=== PATIENT | male | born 1960 | race Caucasian/White ===

== ENCOUNTER 2018-04-11 16:15 | Inpatient (IN) | payer MEDICAID ==
[~2018-04-11] VITALS: Ht 175.3 cm; Wt 153.4 kg
[2018-04-11 16:20] VITALS: BP 165/101
--- NOTE | 2018-04-11 16:35 | NUR ---
PT TAKEN BY WHEELCHAIR TO ER BED 03
--- NOTE | 2018-04-11 16:40 | NUR ---
57/M BIB FAMILY C/O COUGH X 2 DAYS. ALSO C/O LT SIDED CHEST PAIN RADIATING TO HIS LT ARM, SOB, DIZZY ABOUT 10 MIN PRIOR TO ARRIVAL; DENIES N/V/D. HX; QUADRUPLE BYPASS ON 2009, HTN, DM, COPD, STROKE RIGHT SIDE 8 MONTHS AGO.DENIES N/V/D; SKIN IS PINK/WARM/DRY; AAOX4,LUNGS CLEAR BL; HR EVEN AND REGULAR. PATIENT STATES PAIN OF 8/10 AT THIS TIME. PATIENT POSITIONED FOR COMFORT; HOB ELEVATED; BEDRAILS UP X2; BED DOWN. ER MD MADE AWARE OF PT STATUS.
[2018-04-11 16:59] LABS: BASOPHILS # (AUTO) 0.1 K/uL (0.00-0.22); EOSINOPHILS # (AUTO) 0.1 K/uL (0-0.4); EOSINOPHILS % (AUTO) 1.5 % (0.0-4.0); HEMOGLOBIN 14.4 g/dL (12.0-18.0); LYMPHOCYTES # (AUTO) 2.4 K/uL (2.0-11.5); LYMPHOCYTES % (AUTO) 30.1 % (20.5-51.1); MEAN CORPUSCULAR HEMOGLOBIN 33 pg (27-31); MEAN CORPUSCULAR HGB CONC 34 g/dL (33-37); MONOCYTES # (AUTO) 0.6 K/uL (0.8-1.0); MONOCYTES % (AUTO) 8.1 % (1.7-9.3); NEUTROPHILS # (AUTO) 4.7 K/uL (1.8-7.7); NEUTROPHILS % (AUTO) 59.3 % (42.2-75.2); PLATELET COUNT (AUTO) 234 K/uL (140-450); RED BLOOD CELL COUNT(AUTO) 4.38 MIL/uL (4.20-6.10); RED CELL DISTRIBUTION WIDTH 13.4 % (11.6-13.7); WHITE BLOOD COUNT (AUTO) 7.9 K/uL (4.8-10.8)
[2018-04-11 17:08] LABS: ANION GAP 12.4 (8-16); CARBON DIOXIDE 29.1 mmol/L (21-32); CREATININE 0.9 mg/dL (0.7-1.3); POTASSIUM 3.5 mmol/L (3.5-5.1)
[2018-04-11 17:12] LABS: PROTHROMBIN TIME 9.9 secs (10.8-13.4)
[2018-04-11 17:14] LABS: ALBUMIN 3.3 g/dL (3.4-5.0); TOTAL BILIRUBIN 0.3 mg/dL (0.0-1.0)
[2018-04-11] MEDS ORDERED: MORPHINE SULFATE 4 MG/ML SYR IVP ONE ×2 (17:25→18:30)
--- NOTE | 2018-04-11 19:05 | NUR ---
Pt report given to MARIBEL PICKETT. Transfer of care at this time.
--- NOTE | 2018-04-11 19:15 | NUR ---
pt sitting up in bed, vitals stable.
--- NOTE | 2018-04-11 19:16 | NUR ---
Dr. Taveras evaluating patient at bedside.
[2018-04-11] MEDS ORDERED: HYDROcodone/APAP 5/325 MG 1 TAB TAB PO PRN (19:35)
[2018-04-11] MEDS ORDERED: ZOLPIDEM 5 MG TAB PO PRN (19:35)
[2018-04-11] MEDS ORDERED: LORazepam 2 MG/ML VIAL IM/IVP PRN (19:35)
[2018-04-11] MEDS ORDERED: DOCUSATE SODIUM 100 MG GELCAP PO PRN (19:35)
[2018-04-11] MEDS ORDERED: ACETAMINOPHEN 325 MG TAB PO PRN (19:35)
[2018-04-11] MEDS ORDERED: ONDANSETRON 4 MG/2 ML VIAL IM/IVP PRN (19:35)
[2018-04-11] MEDS ORDERED: NITROGLYCERIN 0.4 MG TAB SL PRN (19:40)
[2018-04-11] MEDS ORDERED: DIAZEPAM 5 MG TAB PO ONE (19:40)
[2018-04-11] MEDS ORDERED: ASPIRIN 325 MG TAB PO ONE (19:45)
[2018-04-11] MEDS ORDERED: ALBUTEROL SULFATE/IPRATROPIU 3 ML SOL IH PRN (20:10)
[2018-04-11] MEDS ORDERED: DEXTROSE 50% 50 ML SYR IVP PRN (20:10)
[2018-04-11] MEDS ORDERED: INSULIN LISPRO SLIDING SCALE 100 UNITS/ML VIAL SUBQ PRN (20:10)
[2018-04-11 20:13] LABS: CHOL/HDL RATIO 8.1 (1-4.5); MAGNESIUM 1.9 mg/dL (1.8-2.4); PHOSPHORUS 3.1 mg/dL (2.5-4.9); THYROID STIMULATING HORMONE 0.44 uIU/mL (0.34-3.74)
[2018-04-11 20:20] VITALS: BP 142/66
--- NOTE | 2018-04-11 20:20 | NUR ---
Pt report given to joey seals. Transfer of care at this time. pt vitals stable.
--- NOTE | 2018-04-11 20:20 | NUR ---
Patient will be admitted to care of Dr. Campos. Admited to Telemetry. Will go to room 106 B. Belongings list completed. Report to Alice PICKETT.
--- NOTE | 2018-04-11 20:25 | NUR ---
ADMITTED PT FROM ER. AAOX4. NO C/O OF PAIN AT THIS TIME. NO RESP DISTRESS NOTED. ON ROOM AIR. IV TO LEFT FA #20G, PATENT AND INTACT. PT IS AMBULATORY. ORIENTED PT TO ROOM. DISCUSSED PLAN OF CARE, PT VERBALIZED UNDERSTANDING. CALL LIGHT WITHIN REACH.
[2018-04-11] MEDS ORDERED: NACL 0.9% 1,000 ML IV SCH (20:30)
[2018-04-11] MEDS ORDERED: MORPHINE SULFATE 4 MG/ML SYR IVP PRN (20:50)
[2018-04-11] MEDS ORDERED: ASPI81CT89 PO (20:53)
[2018-04-11] MEDS ORDERED: METO25TA PO (20:53)
[2018-04-11] MEDS ORDERED: LIP80 PO (20:53)
[2018-04-11] MEDS ORDERED: LISI-420 PO (20:53)
[2018-04-11] MEDS ORDERED: FURO-570 PO (20:53)
[2018-04-11] MEDS ORDERED: METOPROLOL 25 MG TAB PO SCH ×2 (21:00)
[2018-04-11] MEDS ORDERED: FUROSEMIDE 40 MG TAB PO SCH (21:00)
[2018-04-11] MEDS ORDERED: BLOOD GLUCOSE MONITORING 1 DEV DEV FS SCH (21:00)
[2018-04-11] MEDS ORDERED: ATORVASTATIN 20 MG TAB PO SCH (21:00)
[2018-04-11] MEDS ORDERED: ALUMINUM HYD/MAG/SIMETHICONE 30 ML UDC PO SCH (21:00)
--- NOTE | 2018-04-11 21:30 | NUR ---
DUE MEDS GIVEN. PT TOLERATED WELL. BLOOD SUGAR CHECKED 105. PT'S AT BEDSIDE.
--- NOTE | 2018-04-11 23:25 | NUR ---
PT STATED THAT HIS NEPHEW CALLED HIM AND THERE'S AN EMERGENCY AT HOME AND PT WANTED TO GO HOME. DR. CAT SPOKE TO PT AND EXPLAINED THE RISK OF LEAVING AMA. PT AND VERBALIZED UNDERSTANDING. PT SIGNED AMA FORM. REMOVED IV LINE AND ARM BAND. PT WALKED TO THE FRONT LOBBY WITH . PT LEFT WITH PERSONAL BELONGINGS. PT IN STABLE CONDITION.
[2018-04-12] MEDS ORDERED: ALBUTEROL SULFATE/IPRATROPIU 3 ML SOL IH SCH (07:00)
[2018-04-12] MEDS ORDERED: PANTOPRAZOLE 40 MG TABEC PO SCH (09:00)
[2018-04-12] MEDS ORDERED: ATORVASTATIN 80 MG TAB PO SCH (09:00)
[2018-04-12] MEDS ORDERED: LISINOPRIL 5 MG TAB PO SCH (09:00)
[2018-04-12] MEDS ORDERED: LISINOPRIL 20 MG TAB PO SCH (09:00)
[2018-04-12] MEDS ORDERED: ASPIRIN 81 MG TAB.CHEW PO SCH ×2 (09:00)
== END 2018-04-11 23:25 | disposition left against medical advice (07) | DRG 243 ==
LOC: MED 16:15 → MTU 19:37
PROVIDERS: ADMIT General Practice; ATTEND General Practice
DX: K21.9 Gastro-esophageal reflux disease without esophagitis (principal); I24.9 Acute ischemic heart disease, unspecified; I11.0 Hypertensive heart disease with heart failure; I50.9 Heart failure, unspecified; E44.1 Mild protein-calorie malnutrition; E66.01 Morbid (severe) obesity due to excess calories; E83.52 Hypercalcemia; M94.0 Chondrocostal junction syndrome [Tietze]; E11.9 Type 2 diabetes mellitus without complications; J44.9 Chronic obstructive pulmonary disease, unspecified; F17.210 Nicotine dependence, cigarettes, uncomplicated; E78.5 Hyperlipidemia, unspecified; Z53.21 Procedure and treatment not carried out due to patient leaving prior to being seen by health care provider; Z88.8 Allergy status to other drugs, medicaments and biological substances; Z91.041 Radiographic dye allergy status; Z86.73 Personal history of transient ischemic attack (TIA), and cerebral infarction without residual deficits; Z95.1 Presence of aortocoronary bypass graft; I25.2 Old myocardial infarction; Z79.82 Long term (current) use of aspirin; Z79.899 Other long term (current) drug therapy; Z68.42 Body mass index [BMI] 45.0-49.9, adult; Z82.49 Family history of ischemic heart disease and other diseases of the circulatory system; Z79.84 Long term (current) use of oral hypoglycemic drugs
CPT/HCPCS: 36415; 71045; 80053; 82948; 83036; 83690; 83735; 83880; 84100; 84134; 84443; 84484; 85025; 85610; 85730; 87081; 93005; 93970; 96374; 96376; 99285; J1644; J1815; J2270; Q0092

== ENCOUNTER 2018-07-03 14:43 | Emergency (ER) | payer MEDICAID, OTHER ==
[~2018-07-03] VITALS: Ht 175.3 cm; Wt 142.4 kg
[~2018-07-03 14:43] MED LIST: ASPI-1718 PO; FURO-570 PO; LIP80 PO; LISI-420 PO; METO25TA PO
[2018-07-03 14:50] VITALS: BP 140/95
--- NOTE | 2018-07-03 14:50 | NUR ---
BIB SELF WITH C/O LT SIDED CHEST PAIN RADIATING TO HIS LT ARM, NAUSEA, DIZZINESS WITH BL LOWER EXTRTEMITY PITTING EDEMA. PER PT HAD PREVIOUSLY 9 HEART ATTACK. + pedal pulse, +1 pedal edema, speak full senctences, no slurred speech HX; CAG X4 2010, HTN, RX; LISINOPRIL, METROPOLOL, PLAVIX
--- NOTE | 2018-07-03 14:52 | NUR ---
PT AMBULATES TO BED 10
[2018-07-03] MEDS ORDERED: FUROSEMIDE 40 MG/4 ML VIAL IVP ONE (15:10)
[2018-07-03] MEDS ORDERED: ALBUTEROL SULFATE/IPRATROPIU 3 ML SOL IH ONE (15:10)
--- NOTE | 2018-07-03 15:41 | NUR ---
BP 140/95 PRIOR TO 40MG LASIX ADMINISTRATION
--- NOTE | 2018-07-03 15:45 | NUR ---
Pt requested for pain medication, Dr Kaplan notified waiting for orders
[2018-07-03 15:55] LABS: BASOPHILS % (AUTO) 0.7 % (0.0-2.0); EOSINOPHILS # (AUTO) 0.3 K/uL (0-0.4); EOSINOPHILS % (AUTO) 4.6 % (0.0-4.0); HEMATOCRIT 40.9 % (36-52); LYMPHOCYTES # (AUTO) 1.9 K/uL (2.0-11.5); LYMPHOCYTES % (AUTO) 29.3 % (20.5-51.1); MEAN CORPUSCULAR HEMOGLOBIN 33 pg (27-31); MEAN CORPUSCULAR HGB CONC 34 g/dL (33-37); MEAN CORPUSCULAR VOLUME 96.5 fL (80-94); MONOCYTES # (AUTO) 0.6 K/uL (0.8-1.0); MONOCYTES % (AUTO) 9.5 % (1.7-9.3); NEUTROPHILS # (AUTO) 3.6 K/uL (1.8-7.7); NEUTROPHILS % (AUTO) 55.9 % (42.2-75.2); PLATELET COUNT (AUTO) 235 K/uL (140-450); RED BLOOD CELL COUNT(AUTO) 4.24 MIL/uL (4.20-6.10); RED CELL DISTRIBUTION WIDTH 13.6 % (11.6-13.7); WHITE BLOOD COUNT (AUTO) 6.5 K/uL (4.8-10.8)
[2018-07-03 16:06] LABS: ANION GAP 7.4 (8-16); CARBON DIOXIDE 30.4 mmol/L (21-32); CREATININE 0.9 mg/dL (0.7-1.3); POTASSIUM 3.8 mmol/L (3.5-5.1)
[2018-07-03 16:12] LABS: ALBUMIN 3.3 g/dL (3.4-5.0); TOTAL BILIRUBIN 0.3 mg/dL (0.0-1.0)
[2018-07-03] MEDS ORDERED: ONDANSETRON 4 MG/2 ML VIAL IVP ONE (16:15)
[2018-07-03] MEDS ORDERED: MORPHINE SULFATE 4 MG/ML SYR IM ONE (16:15)
[2018-07-03 16:52] LABS: PROTHROMBIN TIME 9.9 secs (10.8-13.4)
--- NOTE | 2018-07-03 17:46 | NUR ---
Dinner provided to aao x 4 pt, no c/o pain at this time, vss, waiting for room availability, will continue to monitor.
[2018-07-03 17:56] LABS: BARBITURATE, URINE NEG. ng/ml (NEG <=200); BENZODIAZEPINE, URINE NEG. ng/mL (NEG <=200); CANNABINOID, URINE NEG. ng/mL (NEG <=50); COCAINE, URINE NEG. ng/mL (NEG <=300); OPIATE, URINE NEG. ng/mL (NEG <=2000); PHENCYCLIDINE SCREEN,URINE NEG. ng/mL (NEG <=25)
--- NOTE | 2018-07-03 18:09 | NUR ---
AAO X 4 PT DISCONNECT FROM THE MONITOR TO GO TO THE RESTROOM. EMPTIED 1L OF URINE OUTPUT THROUGH URINAL.
[2018-07-03 18:50] VITALS: BP 141/92
--- NOTE | 2018-07-03 18:50 | NUR ---
Patient discharged against medical advice signed by patient and Dr Purcell. Dr purcell at bedside explained the risk of going ama but the patient insist on going home to take care of his family. Patient verbalized understanding. Ambulatory with steady gait. All questions addressed prior to discharge. Advised to follow up with PMD and per Dr Purcell seek immediate attention if s/s comes back. IV remove.
== END 2018-07-03 18:50 | disposition left against medical advice (07) ==
LOC: MED 14:43
DX: I20.0 Unstable angina (principal); E66.01 Morbid (severe) obesity due to excess calories; F17.210 Nicotine dependence, cigarettes, uncomplicated; E78.5 Hyperlipidemia, unspecified; E11.9 Type 2 diabetes mellitus without complications; J44.9 Chronic obstructive pulmonary disease, unspecified; I10 Essential (primary) hypertension; I25.2 Old myocardial infarction; Z86.73 Personal history of transient ischemic attack (TIA), and cerebral infarction without residual deficits; Z68.42 Body mass index [BMI] 45.0-49.9, adult; Z79.82 Long term (current) use of aspirin; Z79.899 Other long term (current) drug therapy; Z88.5 Allergy status to narcotic agent; Z88.8 Allergy status to other drugs, medicaments and biological substances
CPT/HCPCS: 36415; 71045; 80053; 80305; 83735; 83880; 84484; 85025; 85379; 85610; 85730; 93005; 94640; 96374; 96375; 99284; J1940; J2270; J2405; J7620; Q0092

== ENCOUNTER 2018-07-06 16:21 | Observation (INO) | payer OTHER ==
[~2018-07-06] VITALS: Ht 175.3 cm; Wt 142.4 kg
[2018-07-06 16:28] VITALS: BP 167/97
--- NOTE | 2018-07-06 16:31 | NUR ---
57 YO MALE BIB FAMILY FOR COUGH, LEFT CHEST PAIN RADIATING TO LEFT ARM, STARTED 10 MIN PRIOR TO ARRIVAL. HAS HX OF OR, CAD, CABG, AND HTN, DM. DENIES N/V/D; SKIN IS PINK/WARM/DRY; AAOX4 WITH EVEN AND STEADY GAIT. PATIENT STATES PAIN OF 8/10 AT THIS TIME. PATIENT POSITIONED FOR COMFORT; HOB ELEVATED; BEDRAILS UP X2; BED DOWN. ER MD MADE AWARE OF PT STATUS.
--- NOTE | 2018-07-06 16:31 | NUR ---
Note undone in EDM - 07/06/18 at 1748 by [email or web address] 57 YO MALE BIB FAMILY FOR COUGH, LEFT CHEST PAIN RADIATING TO LEFT ARM, STARTED 10 MIN PRIOR TO ARRIVAL. HAS HX OF PA, CAD, CABG, AND HTN, DM. DENIES N/V/D; SKIN IS PINK/WARM/DRY; AAOX4 WITH EVEN AND STEADY GAIT. PATIENT STATES PAIN OF 8/10 AT THIS TIME; VSS; PATIENT POSITIONED FOR COMFORT; HOB ELEVATED; BEDRAILS UP X2; BED DOWN. ER MD MADE AWARE OF PT STATUS.
--- NOTE | 2018-07-06 17:00 | NUR ---
LAB AT BEDSIDE.
--- NOTE | 2018-07-06 17:03 | NUR ---
Patient being evaluated by DR PATEL at bedside.
[2018-07-06 17:06] LABS: BASOPHILS # (AUTO) 0.1 K/uL (0.00-0.22); BASOPHILS % (AUTO) 1.3 % (0.0-2.0); EOSINOPHILS # (AUTO) 0.2 K/uL (0-0.4); EOSINOPHILS % (AUTO) 3.6 % (0.0-4.0); HEMATOCRIT 41.7 % (36-52); HEMOGLOBIN 13.9 g/dL (12.0-18.0); LYMPHOCYTES % (AUTO) 31.3 % (20.5-51.1); MEAN CORPUSCULAR HEMOGLOBIN 33 pg (27-31); MEAN CORPUSCULAR HGB CONC 33 g/dL (33-37); MEAN CORPUSCULAR VOLUME 97.6 fL (80-94); MONOCYTES # (AUTO) 0.5 K/uL (0.8-1.0); MONOCYTES % (AUTO) 7.8 % (1.7-9.3); NEUTROPHILS # (AUTO) 3.6 K/uL (1.8-7.7); PLATELET COUNT (AUTO) 198 K/uL (140-450); RED BLOOD CELL COUNT(AUTO) 4.28 MIL/uL (4.20-6.10); RED CELL DISTRIBUTION WIDTH 13.3 % (11.6-13.7); WHITE BLOOD COUNT (AUTO) 6.5 K/uL (4.8-10.8)
[2018-07-06] MEDS ORDERED: ASPIRIN 81 MG TAB.CHEW PO ONE (17:15)
[2018-07-06] MEDS ORDERED: MORPHINE SULFATE 4 MG/ML SYR IM ONE (17:15)
--- NOTE | 2018-07-06 17:31 | NUR ---
PT URENATE 300 CC ; YELLOW.
[2018-07-06 17:33] LABS: ALBUMIN 3.4 g/dL (3.4-5.0); ANION GAP 8.6 (8-16); CARBON DIOXIDE 30.4 mmol/L (21-32); CREATININE 0.9 mg/dL (0.7-1.3); TOTAL BILIRUBIN 0.3 mg/dL (0.0-1.0)
[2018-07-06] MEDS ORDERED: NITROGLYCERIN 0.4 MG TAB SL PRN (17:50)
[2018-07-06] MEDS ORDERED: ACETAMINOPHEN 325 MG TAB PO PRN (17:50)
[2018-07-06] MEDS ORDERED: INSULIN LISPRO SLIDING SCALE 100 UNITS/ML VIAL SUBQ PRN (17:50)
[2018-07-06] MEDS ORDERED: ZOLPIDEM 5 MG TAB PO PRN (17:50)
[2018-07-06] MEDS ORDERED: ALBUTEROL 0.083% 2.5 MG/3 ML NEBU IH PRN (17:50)
[2018-07-06] MEDS ORDERED: DEXTROSE 50% 50 ML SYR IVP PRN (17:50)
[2018-07-06] MEDS ORDERED: ONDANSETRON 4 MG/2 ML VIAL IVP PRN (17:50)
[2018-07-06] MEDS ORDERED: LORazepam 2 MG/ML VIAL IVP PRN (17:50)
[2018-07-06] MEDS ORDERED: ONDANSETRON 4 MG ODT PO ONE (17:55)
--- NOTE | 2018-07-06 18:29 | NUR ---
Patient will be admitted to care of DR ALANIS. Admited to TELE. Will go to room 119A. Belongings list completed. Report to ROB PICKETT.
[2018-07-06 18:30] VITALS: BP 175/102
[2018-07-06] MEDS: MORPHINE SULFATE 2 MG/ML SYR IVP PRN ×2 (18:48→20:46)
[2018-07-06 18:55] VITALS: BP 157/91
--- NOTE | 2018-07-06 19:15 | NUR ---
RECEIVED REPORT FROM HARRISON PICKETT DAYSHIFT NURSE, AT BEDSIDE FOR CONTINUITY OF CARE, PT IN STABLE CONDITION.
--- NOTE | 2018-07-06 19:50 | NUR ---
PT IN BED HOB ELEVATED 45%. PT ON ROOM AIR WITH RESPIRATIONS EVEN AND UNLABORED. PT AOX4. SKIN INTACT WITH IV SITE ON LAC 20G. IV SITE IS SALINE LOCKED. PT V/S FOLLOWS T 97.3 P 77 R 20 B/P 149/83 02 91%. PT SAID THAT HE HAS HISTORY OF COPD. PT C/O OF 5/10 CHEST PAIN AT THIS TIME. WILL MEDICATE AND MONITOR FOR PAIN. FAMILY AT BEDSIDE.
[2018-07-06] MEDS ORDERED: METOPROLOL 25 MG TAB PO SCH (21:00)
[2018-07-06] MEDS ORDERED: BLOOD GLUCOSE MONITORING 1 DEV DEV FS SCH (21:00)
[2018-07-06] MEDS ORDERED: SIMVASTATIN 20 MG TAB PO SCH (21:00)
[2018-07-06] MEDS ORDERED: FUROSEMIDE 40 MG TAB PO SCH (21:00)
--- NOTE | 2018-07-06 21:00 | NUR ---
PT NOW C/O OF 7/10 PAIN IN CHEST AND IS REQUESTING PAIN MEDICATION. PT GIVEN PRN IVP MORPHINE 1MG/0.5ML . PT ALSO GIVEN DUE MEDICATION OF LASIX, LOPRESSOR AND ZOCOR. PT ALSO REQUESTING A SNACK AND DRINK. PRIMARY NURSE SAID SHE WILL RETURN TO TAKE PT FINGERSTICK AND ASK PT ADMISSION QUESTIONS. PT VERBALIZED UNDERSTANDING. PT HAS EVEN AND UNLABORED RESPIRATIONS. FAMILY STILL AT BEDSIDE.
--- NOTE | 2018-07-06 21:45 | NUR ---
PT CALLED [facility] AND SPOKE WITH CHARGE NURSE SAYING THAT HE COULD NOT STAY DUE TO AN AT HOME EMERGENCY. PRIMARY NURSE MADE AWARE. DR. KEY NOTIFIED OF PT DESIRE TO LEAVE AMA. MADE AWARE OF PT CHEST X-RAY AND NORMAL TROPONIN LEVEL (.[phone]). PT WAS EXPLAINED VIRAL RISKS AND BENEFITS OF LEAVING. PT SAID THE DOCTOR SAID THAT MY BLOOD LEVEL IS OK, AND THAT HE COULDN'T SAY THE EMERGENCY , BUT THAT IT WAS MORE IMPORTANT THEN BEING HERE. PT SIGNED AMA. PT AOX4, AMBULATORY AND WITH NO S/S OF PAIN OR DISTRESS NOTED.
--- NOTE | 2018-07-06 21:50 | NUR ---
PT LEFT AMA , UNABLE TO ADMIT PT.
[2018-07-07] MEDS ORDERED: LISINOPRIL 20 MG TAB PO SCH (09:00)
[2018-07-07] MEDS ORDERED: ENOXAPARIN 40 MG/0.4 ML SYR SUBQ SCH (09:00)
[2018-07-07] MEDS ORDERED: ASPIRIN 81 MG TAB.CHEW PO SCH (09:00)
== END 2018-07-06 21:36 | disposition left against medical advice (07) ==
LOC: MED 16:21 → MTU 17:50
PROVIDERS: ADMIT Hospitalist; ATTEND Hospitalist
DX: R07.89 Other chest pain (principal); E11.9 Type 2 diabetes mellitus without complications; J44.9 Chronic obstructive pulmonary disease, unspecified; F17.200 Nicotine dependence, unspecified, uncomplicated; I63.9 Cerebral infarction, unspecified; I11.0 Hypertensive heart disease with heart failure; I50.9 Heart failure, unspecified; I21.9 Acute myocardial infarction, unspecified; I25.2 Old myocardial infarction; E78.5 Hyperlipidemia, unspecified; I25.10 Atherosclerotic heart disease of native coronary artery without angina pectoris; Z95.1 Presence of aortocoronary bypass graft
CPT/HCPCS: 36415; 71045; 80053; 82948; 83880; 84484; 85025; 87081; 93005; 96372; 96374; 96376; 99285; G0378; J2270; Q0162

== ENCOUNTER 2018-07-31 13:03 | Emergency (ER) | payer OTHER ==
[~2018-07-31] VITALS: Ht 165.1 cm; Wt 154.7 kg
[2018-07-31 13:19] VITALS: BP 178/101
--- NOTE | 2018-07-31 13:45 | NUR ---
PATIENT PRESENTS TO ED WITH C/O LEFT SIDED CHEST PAIN RADIATING LUE X <1 HR AGO---UNPROVOKED CONSTANT SKIN DRY WARM TO TOUCH--NO ACCESSORY MUSCLE USE NOTED AT THIS TIME .. DENIES N/V/D; SKIN IS PINK/WARM/DRY; AAOX4 WITH EVEN AND STEADY GAIT; LUNGS CLEAR BL; HR EVEN AND REGULAR; PT DENIES ANY FEVER, OR COUGH AT THIS TIME; PATIENT STATES PAIN OF 9/10 AT THIS TIME; VSS; PATIENT POSITIONED FOR COMFORT; HOB ELEVATED; BEDRAILS UP X2; BED DOWN. ER MD MADE AWARE OF PT STATUS.
[2018-07-31] MEDS ORDERED: MORPHINE SULFATE 4 MG/ML SYR IVP ONE (13:55)
[2018-07-31] MEDS ORDERED: ONDANSETRON 4 MG/2 ML VIAL IVP ONE (13:55)
[2018-07-31] MEDS ORDERED: NITROGLYCERIN 0.4 MG TAB SL ONE (13:55)
[2018-07-31 14:19] LABS: BASOPHILS # (AUTO) 0.1 K/uL (0.00-0.22); BASOPHILS % (AUTO) 0.8 % (0.0-2.0); EOSINOPHILS # (AUTO) 0.1 K/uL (0-0.4); EOSINOPHILS % (AUTO) 2.1 % (0.0-4.0); HEMOGLOBIN 13.8 g/dL (12.0-18.0); LYMPHOCYTES # (AUTO) 2.1 K/uL (2.0-11.5); LYMPHOCYTES % (AUTO) 30.5 % (20.5-51.1); MEAN CORPUSCULAR HEMOGLOBIN 32 pg (27-31); MEAN CORPUSCULAR HGB CONC 34 g/dL (33-37); MEAN CORPUSCULAR VOLUME 95.6 fL (80-94); MONOCYTES # (AUTO) 0.7 K/uL (0.8-1.0); MONOCYTES % (AUTO) 9.5 % (1.7-9.3); NEUTROPHILS % (AUTO) 57.1 % (42.2-75.2); PLATELET COUNT (AUTO) 201 K/uL (140-450); RED BLOOD CELL COUNT(AUTO) 4.29 MIL/uL (4.20-6.10); RED CELL DISTRIBUTION WIDTH 13.3 % (11.6-13.7)
[2018-07-31 14:22] LABS: APPEARANCE,URINE CLEAR (CLEAR); BILIRUBIN,URINE NEGATIVE (NEGATIVE); BLOOD, URINE NEGATIVE (NEGATIVE); COLOR,URINE YELLOW (YELLOW); LEUKOCYTE ESTERASE ,URINE NEGATIVE (NEGATIVE); NITRITE, URINE NEGATIVE (NEGATIVE); UGLUCOSE NEGATIVE (NEGATIVE)
[2018-07-31 14:30] LABS: ANION GAP 11.8 (8-16); CARBON DIOXIDE 27.1 mmol/L (21-32); CREATININE 0.8 mg/dL (0.7-1.3); MAGNESIUM 1.9 mg/dL (1.8-2.4); POTASSIUM 3.9 mmol/L (3.5-5.1)
[2018-07-31 14:32] LABS: BARBITURATE, URINE NEG. ng/ml (NEG <=200); BENZODIAZEPINE, URINE NEG. ng/mL (NEG <=200); CANNABINOID, URINE NEG. ng/mL (NEG <=50); COCAINE, URINE NEG. ng/mL (NEG <=300); OPIATE, URINE NEG. ng/mL (NEG <=2000); PHENCYCLIDINE SCREEN,URINE NEG. ng/mL (NEG <=25)
[2018-07-31 14:34] LABS: PROTHROMBIN TIME 9.9 secs (10.8-13.4)
--- NOTE | 2018-07-31 14:34 | NUR ---
CXR COMPLETED AT BEDSIDE
[2018-07-31 14:36] LABS: ALBUMIN 3.4 g/dL (3.4-5.0); TOTAL BILIRUBIN 0.4 mg/dL (0.0-1.0)
[2018-07-31] MEDS ORDERED: FUROSEMIDE 40 MG/4 ML VIAL IVP ONE (15:50)
[2018-07-31] MEDS ORDERED: MORPHINE SULFATE 4 MG/ML SYR IM ONE (15:55)
[2018-07-31] MEDS ORDERED: METOCLOPRAMIDE 10 MG/2 ML INJ VIAL IVP ONE (15:55)
[2018-07-31 16:08] VITALS: BP 177/96
--- NOTE | 2018-07-31 16:09 | NUR ---
MEDICATED FOR PAIN RELIEF WRITTEN---C/O CHEST PAIN 11/07 AT THIS TIME, DENIES SOB AT THIS TIME. FULL CLEAR SPEECH, HOLDING CONVERSATION WITH ME AT BEDSIDE. PT CONTINUES TO REMOVE NC STATING IT BOTHERS HIM. INSTRUCTED TO HAVE PUT BACK ON IF FEELS SOB. CONTINUES TO WAIT FOR AVAILABLE ROOM FOR ADMISSION.
--- NOTE | 2018-07-31 16:40 | NUR ---
Patient does not wish to proceed with medical care recommended by MD Rosaura. Patient given information related to possible complications, up to and including , which could occur as a result of leaving hospital at this time. Patient verbalizes understanding of risks involved leaving against medical advice. Patient has signed AMA form.
== END 2018-07-31 16:40 | disposition left against medical advice (07) ==
LOC: MED 13:03
DX: I11.0 Hypertensive heart disease with heart failure (principal); I50.9 Heart failure, unspecified; I51.7 Cardiomegaly; E11.9 Type 2 diabetes mellitus without complications; J44.9 Chronic obstructive pulmonary disease, unspecified; Z86.73 Personal history of transient ischemic attack (TIA), and cerebral infarction without residual deficits; Z88.6 Allergy status to analgesic agent; Z79.1 Long term (current) use of non-steroidal anti-inflammatories (NSAID); Z79.899 Other long term (current) drug therapy
CPT/HCPCS: 36415; 71045; 80053; 80305; 81003; 83735; 83880; 84484; 85025; 85379; 85610; 85730; 93005; 96374; 96375; 96376; 99284; G0482; J1940; J2270; J2405; J2765; Q0092